=== PATIENT | female | born 1985 | race African-American/Black ===

== ENCOUNTER 2017-01-05 13:59 | Emergency (ER) | payer MEDICAID ==
[~2017-01-05] VITALS: Ht 154.9 cm; Wt 84.0 kg
[2017-01-05 14:01] VITALS: BP 104/70
== END 2017-01-05 16:05 | disposition home or self-care (01) ==
LOC: ED 14:39
DX: M94.0 Chondrocostal junction syndrome [Tietze] (principal); J45.909 Unspecified asthma, uncomplicated
CPT/HCPCS: 36415; 71020; 80047; 84484; 93005; 99285

== ENCOUNTER 2019-01-01 16:02 | Emergency (ER) | payer MEDICAID ==
[~2019-01-01] VITALS: Ht 154.9 cm; Wt 85.3 kg
[2019-01-01 16:11] VITALS: BP 123/80
== END 2019-01-01 16:38 | disposition home or self-care (01) ==
LOC: ED 16:12
DX: L02.212 Cutaneous abscess of back [any part, except buttock and flank] (principal); J45.909 Unspecified asthma, uncomplicated
CPT/HCPCS: 99283